=== PATIENT | female | born 1980 | race Caucasian/White ===

== ENCOUNTER → 2020-07-13 | Outpatient (CLI) | payer OTHER ==
[2017-12-15 09:14] VITALS: BP 110/61
[~2020-07-13] MED LIST: ONDA4TAB7 PO
--- NOTE | 2020-07-13 09:30 | RAD ---
INDICATION: Reason: UMBILICAL PAIN AFTER [facility] HERNIA REPAIR 2 YEARS AGO / Spl. Instructions: / Histo ry: COMPARISON: None. FINDINGS: Focused ultrasound images are obtained of the subcutaneous soft tissues near umbilicus. Within the subcutaneous soft tissues at the umbilicus there is a 20 x 16 x 8 mm structure within the subcutaneous soft tissues which has a heterogenous appearance with some echogenic foci within. No magalys nge in appearance with Valsalva. IMPRESSION: * Within the subcutaneous soft tissues there is a heterogenous structure identified at the umbilica l region with some echogenic foci within. This has a nonspecific appearance and could be related to t he patient's prior surgery such as causes such as fat necrosis, or confluent fibrosis. A subcutaneous soft tissue mass such as lipoma would also be within the differential. If further clarification is d esired CT or MRI could BE obtained to assess the internal architecture to see if this is fat or soft tissue containing. Alternatively follow-up ultrasound could BE obtained to ensure no growth of this s tructure. Electronically signed by: Jordan Ragland MD (07/13/2020 9:28 AM) [id number]
== END ==
LOC: US 07:55
PROVIDERS: ATTEND Nurse Practitioner Family
DX: R10.815 Periumbilic abdominal tenderness (principal)
CPT/HCPCS: 76705

== ENCOUNTER → 2020-08-03 | Outpatient (CLI) | payer OTHER ==
[2017-12-15 09:14] VITALS: BP 110/61
[~2020-08-03] MED LIST changes: +IOHEXOL 240 MG/ML 50ML VIAL. ONE
[2020-08-03] MEDS: IOHEXOL 300 MG/ML 75 ML VIAL. IV ONE (09:26)
[2020-08-03] MEDS: IOHEXOL 240 MG/ML 50ML VIAL. PO ONE (09:26)
--- NOTE | 2020-08-03 13:57 | RAD ---
EXAM: Abdomen and pelvis CT without and with intravenous contrast. HISTORY: Soft tissue mass. TECHNIQUE: Computed tomographic images of the abdomen and pelvis were obtained prior to and following the administration of intravenous contrast. Multiplanar reformatting was performed. *One or more of the following individualized dose reduction techniques were utilized for this examina tion: 1. Automated exposure control. 2. Adjustment of the mA and/or kV according to patient size. 3. Use of iterative reconstruction technique. COMPARISON: Sonogram dated 07/13/2020. FINDINGS: Evaluation of the lower thorax demonstrates bilateral posterior dependent atelectasis. Ther e is no infiltrate, pleural effusion or suspicious pulmonary nodule. No suspicious hepatic lesion is seen. The gallbladder, pancreas, spleen and adrenal glands are unremarkable. There is anterior right renal cortical scarring. There is no hydronephrosis. There is no appendicitis. There is no bowel obstruction. There is moderate stool throughout the colon . The urinary bladder is unremarkable. There is a dominant left ovarian follicle/follicular cyst zhang uring 1.8 cm. There is a small amount of nonspecific pelvic free fluid. There are prominent pelvic ve ssels and left greater than right gonadal veins, a finding which can be seen with pelvic congestion. The aorta is normal in caliber. There is no lymphadenopathy. There is prominent omental fat centered slightly to the right of midline at the level of the umbilicu s measuring 5.3 cm in maximum dimension. There is a tiny fat-containing supraumbilical hernia measuri ng 10 mm. There is slight skin thickening involving the umbilicus. No mass or drainable fluid collect ion is seen in this location. There is no suspicious osseous lesion. IMPRESSION: 1. Tiny fat-containing supraumbilical hernia. There is mild skin thickening involving the umbilicus. No mass or drainable fluid collection is seen. 2. Prominent omental fat centered slightly to the right of midline at the level of the umbilicus zhang uring 5.3 cm in maximum dimension. This may be physiologic or due to a lipoma. There is no finding to suggest a liposarcoma or alternative malignancy. Follow-up can be performed in 6 months to confirm s tability. 3. 1.8 cm dominant left ovarian follicle/follicular cyst. Electronically signed by: Maegan Valdovinos MD (08/03/2020 1:55 PM) [id number]
== END ==
LOC: CT 08:13
PROVIDERS: ATTEND Nurse Practitioner Family
DX: K42.9 Umbilical hernia without obstruction or gangrene (principal); J98.11 Atelectasis; N83.292 Other ovarian cyst, left side
CPT/HCPCS: 74178; Q9966; Q9967